=== PATIENT | female | born 1995 | race Caucasian/White ===

== ENCOUNTER 2017-02-02 11:28 | Emergency (ER) | payer BC, OTHER ==
[~2017-02-02] VITALS: Ht 149.9 cm; Wt 43.5 kg
[2017-02-02 11:34] VITALS: Ht 149.9 cm; Wt 43.5 kg
[2017-02-02] MEDS ORDERED: SOD CHLORIDE 0.9% 1,000 ML IV STA (12:45)
[2017-02-02] MEDS ORDERED: FAMOTIDINE 20 MG INJ IV STA (12:45)
[2017-02-02] MEDS ORDERED: ONDANSETRON 4 MG INJ IV STA (12:45)
--- NOTE | 2017-02-02 12:52 | ERD ---
ER Documentation Chief Complaint Chief Complaint EPIGASTRIC PAIN S/P ALCOHOL INTAKE LAST NIGHT HPI 21-year-old female with a history of gastritis comes to emergency room with epigastric burning abdominal pain that started last night after drinking. The patient states that she ate once yesterday and then she began drinking at 10 PM she reports a heavy amount in a subsequently developed multiple episodes of nonbloody nonbilious emesis. She describes epigastric pain that radiates to her chest described as burning is on a PPI but states that she has not been taking over the last couple of weeks. She denies fevers or chills. She denies shortness of breath. ROS All systems reviewed and are negative except as per history of present illness. Medications Home Meds Active Scripts Omeprazole* (Omeprazole*) 20 Mg Capsule.dr, 20 MG PO DAILY, #30 Prov:DEVI ESTEBAN PA-C 02/02/17 Ranitidine Hcl* (Zantac*) 150 Mg Tablet, 150 MG PO BID Y for EPIGASTRIC PAIN, # 30 TAB Prov:DEVI ESTEBAN PA-C 02/02/17 Ondansetron (Ondansetron Odt) 4 Mg Tab.rapdis, 4 MG PO Q6H Y for NAUSEA AND/OR VOMITING, #10 TAB Prov:DEVI ESTEBAN PA-C 02/02/17 Reported Medications [none] Unknown Strength No Conflict Check 05/04/15 Allergies Allergies: Coded Allergies: No Known Allergy (Unverified , 02/13/13) PMhx/Soc Medical and Surgical Hx: pt denies Surgical Hx Hx Miscellaneous Medical Probl: Yes (Gastritis) Hx Alcohol Use: Yes Hx Substance Use: No Hx Tobacco Use: No Physical Exam Vitals Vital Signs Date Time Temp Pulse Resp B/P Pulse Ox O2 Delivery O2 Flow Rate FiO2 02/02/17 11:34 98.0 94 22 153/109 98 Physical Exam General: Well-developed, well-nourished. The patient appears in no acute distress. HEENT: Head is normocephalic, atraumatic. No scleral icterus. Neck: Supple. Nontender. Lungs: Clear to auscultation. Normal air movement. Heart: Regular rate and rhythm. S1 and S2 are normal. No murmurs, gallops, or rubs. Abdomen: Soft, tenderness in the epigastric region, no hepatosplenomegaly, no McBurney's tenderness, negative Betancur sign nondistended. Bowel sounds are normoactive. Extremities: No clubbing or cyanosis. Normal pulses. Moving extremities x 4. No weakness. Neurologic: Alert and oriented 3. No focal deficits. Skin: Normal turgor. No rash or lesions. Result Diagram: 02/02/17 1300 02/02/17 1300 Results 24 hrs Laboratory Tests Test 02/02/17 13:00 White Blood Count 10.610^3/ul Red Blood Count 4.6210^6/ul Hemoglobin 13.9g/dl Hematocrit 40.4% Mean Corpuscular Volume 87.4fl Mean Corpuscular Hemoglobin 30.1pg Mean Corpuscular Hemoglobin Concent 34.4g/dl Red Cell Distribution Width 13.0% Platelet Count 53120^3/UL Mean Platelet Volume 11.4fl Neutrophils % 84.5% Lymphocytes % 11.3% Monocytes % 3.4% Eosinophils % 0.2% Basophils % 0.4% Nucleated Red Blood Cells % 0.0/100WBC Neutrophils # 9.010^3/ul Lymphocytes # 1.210^3/ul Monocytes # 0.410^3/ul Eosinophils # 0.010^3/ul Basophils # 0.010^3/ul Nucleated Red Blood Cells # 0.010^3/ul Sodium Level 146mmol/L Potassium Level 3.9mmol/L Chloride Level 106mmol/L Carbon Dioxide Level 24mmol/L Anion Gap 20 Blood Urea Nitrogen 6mg/dl Creatinine 0.61mg/dl Glucose Level 95mg/dl Calcium Level 9.4mg/dl Total Bilirubin 0.4mg/dl Direct Bilirubin 0.00mg/dl Indirect Bilirubin 0.4mg/dl Aspartate Amino Transf (AST/SGOT) 28IU/L Alanine Aminotransferase (ALT/SGPT) 32IU/L Alkaline Phosphatase 56IU/L Total Protein 8.3g/dl Albumin 5.2g/dl Globulin 3.10g/dl Albumin/Globulin Ratio 1.67 Lipase 74U/L Serum HCG, Qualitative NEGATIVE Current Medications Medications (Trade) Dose Ordered Sig/Britton Route PRN Reason Start Time Stop Time Status Last Admin Dose Admin Sodium Chloride (NS) 1,000 ml @ 1,000 mls/hr Q1H STAT IV 02/02/17 12:45 02/02/17 13:44 DC 02/02/17 13:13 Ondansetron HCl (Zofran Inj) 4 mg ONCE STAT IV 02/02/17 12:45 02/02/17 12:46 DC 02/02/17 13:13 Famotidine (Pepcid Iv) 20 mg ONCE STAT IV 02/02/17 12:45 02/02/17 12:46 DC 02/02/17 13:13 Pantoprazole (Protonix Iv) 40 mg ONCE ONCE IV 02/02/17 13:00 02/02/17 13:01 DC 02/02/17 13:13 Miscellaneous Medication (Gi Cocktail (2)) 40 ml ONCE ONCE PO 02/02/17 14:30 02/02/17 14:31 DC 02/02/17 14:27 Procedures/MDM ED course: Patient was given IV fluids, she was given a fluid bolus normal saline 1 L, Protonix IV, Pepcid 20 mg IV, Zofran 4 mg IV. Medical decision makin-year-old female comes in with epigastric abdominal pain after drinking last night, she has a history of gastritis and has not been taking her PPIs recently. The patient comes in with a most likely alcoholic gastritis, suspicion for pancreatitis, acute hepatobiliary process, dissection, pneumothorax, acute coronary syndrome is low. She was given fluids as well as Protonix, Pepcid and Zofran with alleviation of her symptoms. She states that she is currently hungry at this time, and feels better and will be discharged home. Departure Diagnosis: Primary Impression: Epigastric pain Condition: DEVI Adame PA-C Feb 02, 2017 12:52
[2017-02-02] MEDS ORDERED: PANTOPRAZOLE 40 MG INJ IV ONE (13:00)
[2017-02-02 13:18] LABS: BASOPHILS % 0.4 % (0.0-2.0); EOSINOPHILS % 0.2 % (0.0-7.0); HEMATOCRIT 40.4 % (37.0-47.0); HEMOGLOBIN 13.9 g/dl (12.0-16.0); LYMPHOCYTES # 1.2 10^3/ul (0.8-2.9); LYMPHOCYTES % 11.3 % (15.0-51.0); MEAN CORPUSCULAR HEMOGLOBIN 30.1 pg (29.0-33.0); MEAN CORPUSCULAR HGB CONC 34.4 g/dl (32.0-37.0); MEAN CORPUSCULAR VOLUME 87.4 fl (82.0-101.0); MEAN PLATELET VOLUME 11.4 fl (7.4-10.4); MONOCYTE # 0.4 10^3/ul (0.3-0.9); MONOCYTES % 3.4 % (0.0-11.0); NEUTROPHILS % 84.5 % (39.0-77.0); PLATELET COUNT 262 10^3/UL (140-415); RED BLOOD COUNT 4.62 10^6/ul (4.20-5.40); WHITE BLOOD COUNT 10.6 10^3/ul (4.8-10.8)
[2017-02-02 13:37] LABS: ALBUMIN 5.2 g/dl (3.3-4.9); ALBUMIN/GLOBULIN RATIO 1.67; BILIRUBIN,INDIRECT 0.4 mg/dl (0-1.1); BILIRUBIN,TOTAL 0.4 mg/dl (0.2-1.3); CALCIUM 9.4 mg/dl (8.4-10.2); CREATININE 0.61 mg/dl (0.44-1.00); POTASSIUM 3.9 mmol/L (3.5-5.1); TOTAL PROTEIN 8.3 g/dl (6.1-8.1)
[2017-02-02] MEDS ORDERED: OMEP20CA16 PO (14:16)
[2017-02-02] MEDS ORDERED: RANI150T9 PO (14:16)
[2017-02-02] MEDS ORDERED: ONDA4TAB14 PO (14:16)
[2017-02-02] MEDS ORDERED: LIDOCAINE/MYLANTA 40 ML BTL PO ONE (14:30)
[2017-02-02 15:20] VITALS: BP 112/65; PULSE 85; RESP 17; TEMP 98.3
== END 2017-02-02 15:21 | disposition home or self-care (01) ==
LOC: FTE 11:28
DX: R10.13 Epigastric pain (principal)
CPT/HCPCS: 36415; 80053; 83690; 84703; 85025; 96374; 96375; C9113; J2405; J7030; Z7502; Z7610